=== PATIENT | female | born 1950 | race Caucasian/White ===

== ENCOUNTER → 2022-01-06 11:06 | Outpatient (CLI) | payer MEDICARE, SELFPAY ==
--- NOTE | ~2022-01-06 | MM_ITS ---
EXAMINATION: MM screening [facility] BI w curtis HISTORY: Screening mammogram TECHNIQUE: Craniocaudal and mediolateral oblique 3-D tomosynthesis images were obtained and synthetic 2-D images were generated. CAD analysis was submitted and interpreted. COMPARISON: 08/29/2018, 05/27/2015, 10/05/2011 BREAST PARENCHYMAL COMPOSITION: There are scattered areas of fibroglandular density. FINDINGS: There is no evidence of suspicious mass, calcification, or architectural distortion to sugg est malignancy in either breast. There has been no suspicious interval change. IMPRESSION: 1. No mammographic evidence of malignancy. 2. Recommend routine screening mammography in one year. BI-RADS Category 1: Negative Reviewed, dictated and finalized at location A. RAL INTERN
--- NOTE | ~2022-01-06 | DEXA_ITS ---
Bone Density Report Name: ATUL CLEMENT Age: 71 Sex: Female Ethnicity: White Date of : 1950 Indication: osteopenia; height loss; hysterectomy; postmenopausal Referring Provider: BRUNA SAUER Study: Bone densitometry was performed. Exam Date: January 06, 2022 Accession number: [id number] Bone Density: Region BMD T-score Z-score Classification Femoral Neck (Left) 0.537 -2.8 -1.0 Osteoporosis Total Hip (Left) 0.689 -2.1 -0.6 Osteopenia Femoral Neck (Right) 0.558 -2.6 -0.8 Osteoporosis Total Hip (Right) 0.689 -2.1 -0.6 Osteopenia Total Hip Mean 0.689 -2.1 -0.6 Osteopenia World Health Organization criteria for BMD impression classify patients as: Normal (T-score at or above -1.0), Osteopenia (T-score between -1.0 and -2.5), or Osteoporosis (T-score at or below -2.5). 10-year Fracture Risk: FRAX not reported because: Some T-score for Spine Total or Hip Total or Femoral Neck at or below -2.5 Previous Exams: Region Exam Age BMD T-score BMD Change BMD Change Date g/cm2 vs Baseline vs Previous Total Hip(Left) 01/06/2022 71 0.689 -2.1 -0.039* -0.039* 10/05/2011 61 0.728 -1.8 Total Hip(Right) 01/06/2022 71 0.689 -2.1 -0.030* -0.030* 10/05/2011 61 0.719 -1.8 *Denotes significance at 95% confidence level, LSC for Total Hip = 0.027 g/cm2 Clinical Information Provided by Patient: Has the following medical conditions: Hysterectomy Patient maximum height was 69.0 Menopause Age: 49 Drinks caffeinated beverages Onset of menses at age 16 Number of children 3 Impression: The patient has osteoporosis, based on the Left Femoral Neck T-score. The BMD for the Total Hip(Left) decreased, changing by -0.039 since the last DXA exam. The BMD for the Total Hip(Right) decreased, changing by -0.030 since the last DXA exam. Discussion: INCREASED RISK OF FRACTURE. BONE DENSITY IS UNDESIRABLY LOW AT ONE OR MORE SKELETAL SITES, CONSISTENT WITH POSTMENOPAUSAL OSTEOPOROSIS. This patient's lowest T-score meets the World Health Organization's (WHO) criteria for osteoporosis at one or more sites (T-score -2.5 or below). In untreated patients, the risk of osteoporotic fracture increases approximately two-fold for each 1.0 SD decrease in T-score. Low bone density is not the only risk factor for fracture; also consider factors such as patient's age, frailty or poor health, risk of falling, risk of injury, previous osteoporotic fracture, family history of osteoporosis, cigarette smoking, low christiane
== END ==
PROVIDERS: PCP Family Medicine Adolescent Medicine; Visit Provider Family Medicine Adolescent Medicine
DX: Z12.31 Encounter for screening mammogram for malignant neoplasm of breast (principal); Z78.0 Asymptomatic menopausal state; M81.0 Age-related osteoporosis without current pathological fracture; M85.852 Other specified disorders of bone density and structure, left thigh; M85.851 Other specified disorders of bone density and structure, right thigh
CPT/HCPCS: 77063; 77067; 77080

== ENCOUNTER → 2024-01-11 08:48 | Outpatient (CLI) | payer MEDICARE, SELFPAY ==
--- NOTE | ~2024-01-11 | DEXA_ITS ---
Bone Density Report Name: ATUL CLEMENT Age: 73 Sex: Female Ethnicity: White Date of : 1950 Indication: osteopenia; monitoring treatment; height loss; hysterectomy; Referring Provider: BRUNA SAUER Study: Bone densitometry was performed. Exam Date: January 11, 2024 Accession number: [id number] Bone Density: Region BMD T-score Z-score Classification Femoral Neck (Left) 0.595 -2.3 -0.4 Osteopenia Total Hip (Left) 0.713 -1.9 -0.3 Osteopenia Femoral Neck (Right) 0.558 -2.6 -0.7 Osteoporosis Total Hip (Right) 0.674 -2.2 -0.6 Osteopenia Total Hip Mean 0.694 -2.1 -0.5 Osteopenia World Health Organization criteria for BMD impression classify patients as: Normal (T-score at or above -1.0), Osteopenia (T-score between -1.0 and -2.5), or Osteoporosis (T-score at or below -2.5). 10-year Fracture Risk: FRAX not reported because: Some T-score for Spine Total or Hip Total or Femoral Neck at or below -2.5 Treated for osteoporosis Previous Exams: Region Exam Age BMD T-score BMD Change BMD Change Date g/cm2 vs Baseline vs Previous Total Hip(Left) 01/11/2024 73 0.713 -1.9 -0.015 0.024 01/06/2022 71 0.689 -2.1 -0.039* -0.039* 10/05/2011 61 0.728 -1.8 Total Hip(Right) 01/11/2024 73 0.674 -2.2 -0.045* -0.015 01/06/2022 71 0.689 -2.1 -0.030* -0.030* 10/05/2011 61 0.719 -1.8 *Denotes significance at 95% confidence level, LSC for Total Hip = 0.027 g/cm2 Clinical Information Provided by Patient: Is being treated for osteoporosis Has used the following medications: Fosamax (i.e. alendronate) Has the following medical conditions: Hysterectomy Patient maximum height was 69.0 Menopause Age: 49 No regular weight bearing exercise Does not regularly consume dairy products Drinks caffeinated beverages Onset of menses at age 16 Number of children 3 Impression: The patient has osteoporosis, based on the Right Femoral Neck T-score. No significant bone loss was observed. Discussion: PATIENT UNDER TREATMENT WITH NO SIGNIFICANT BMD LOSS SINCE LAST EXAM. In an untreated patient, BMD typically declines with age. A lack of decline or gain is usually a sign that treatment is efficacious and fracture risk is reduced. It is important to ask patients whether they are taking their medications and to encourage continued and appropriate compliance with their osteoporosis therapies to reduce fracture risk. It is also important to review their risk
== END ==
PROVIDERS: PCP Family Medicine Adolescent Medicine; Visit Provider Family Medicine Adolescent Medicine
DX: Z78.0 Asymptomatic menopausal state (principal); M85.88 Other specified disorders of bone density and structure, other site; M85.852 Other specified disorders of bone density and structure, left thigh; M85.851 Other specified disorders of bone density and structure, right thigh; M81.0 Age-related osteoporosis without current pathological fracture
CPT/HCPCS: 77080

== ENCOUNTER 2024-03-06 15:25 | Outpatient (CLI) | payer MEDICARE, SELFPAY ==
--- NOTE | ~2024-03-06 | MM_ITS ---
EXAMINATION: MM screening [facility] w [facility] HISTORY: Screening mammogram TECHNIQUE: Craniocaudal and mediolateral oblique 3-D tomosynthesis images were obtained and synthetic 2-D images were generated. CAD analysis was submitted and interpreted. COMPARISON: 01/06/2022, 08/29/2018 bilateral screening mammogram examinations BREAST PARENCHYMAL COMPOSITION: There are scattered areas of fibroglandular density. FINDINGS: There is no evidence of suspicious mass, calcification, or architectural distortion to sugg est malignancy in either breast. There has been no suspicious interval change. IMPRESSION: 1. No mammographic evidence of malignancy. 2. Recommend routine screening mammography in one year. BI-RADS Category 1: Negative Reviewed, dictated and finalized at location A.
== END 2024-03-06 15:26 ==
LOC: MICIMG 15:25
PROVIDERS: PCP Family Medicine Adolescent Medicine; Visit Provider Family Medicine Adolescent Medicine
DX: Z12.31 Encounter for screening mammogram for malignant neoplasm of breast (principal)
CPT/HCPCS: 77063; 77067

== ENCOUNTER 2024-03-10 15:42 | Emergency (ER) | payer MEDICARE, SELFPAY ==
--- NOTE | ~2024-03-10 | XR_ITS ---
EXAMINATION: XR chest 2V DATE: 03/10/2024 16:39 INDICATION: Dizziness and weakness. TECHNIQUE: Frontal and lateral views of the chest were obtained. COMPARISON: Chest 2 views 09/21/2006 FINDINGS: There is mild scarring at the lung apices. No pleural effusion or pneumothorax. The heart s ize is normal. There are changes of posterior fusion procedure in the lumbar spine. IMPRESSION: 1. Stable mild scarring at the lung apices. Reviewed, dictated and finalized at location E.
--- NOTE | ~2024-03-10 | US_ITS ---
EXAMINATION: US venous doppler [facility] DATE: 03/10/2024 19:02 INDICATION: Left lower limb swelling. TECHNIQUE: Grayscale ultrasound images without and with compression and Doppler ultrasound images of the left lower extremity veins were obtained. COMPARISON: None. FINDINGS: The visualized portions of left common femoral vein, profunda (deep) femoral vein, femoral vein, popl iteal vein, peroneal veins, posterior tibial veins, and greater saphenous vein outflow are patent. IMPRESSION: 1. No deep venous thrombosis. Reviewed, dictated and finalized at location E.
[2024-03-10 15:48] VITALS: BP 142/80; PULSE 89; RESP 18; TEMP 36.4; O2SAT 100
--- NOTE | 2024-03-10 15:52 | ECG_ITS ---
SEE SCANNED COPY FOR CONFIRMED REPORT MTDD
[2024-03-10 16:29] LABS: Basophils Absolute Auto 0.1 K/mm3 (0.0-0.1); Basophils Percent Auto 0.7 % (0.2-1.2); Eosinophils Absolute Auto 0.1 K/mm3 (0-0.3); Eosinophils Percent Auto 1.1 % (0-4.4); Hematocrit 24.9 % (37.0-47.0); Hemoglobin 7.7 g/dL (12.0-15.0); Immature Granulocyte Absolute 0.04 K/mm3 (0.00-0.031); Immature Granulocyte Percent A 0.5 % (0-0.5); Lymphocytes Percent Auto 28.1 % (18.3-44.2); Mean Corpuscular HGB Conc 30.9 g/dl (32-36); Mean Corpuscular Hemoglobin 24.7 pg (26-34); Mean Corpuscular Volume 79.8 fl (80-100); Mean Platelet Volume 9.4 fl (7.4-10.4); Monocytes Absolute Auto 0.7 K/mm3 (0.1-0.6); Monocytes Percent Auto 9.5 % (2.6-8.5); Neutrophils Absolute Auto 4.5 K/mm3 (1.3-6.7); Neutrophils Percent Auto 60.1 % (45.5-73.1); Platelet Count Result 255 k/mm3 (150-375); Red Blood Count 3.12 M/mm3 (4.2-5.4); Red Cell Distribution Width 19.9 % (11.5-14.5); White Blood Count 7.5 K/mm3 (4.5-10.0)
[2024-03-10 16:40] LABS: Alanine Aminotransferase 14 U/L (6-35); Albumin Level 4.2 g/dL (3.5-5.1); Alkaline Phosphatase 47 U/L (38-126); Anion Gap 7 mmol/L (4-12); Aspartate Amino Transferase 23 U/L (14-36); Bilirubin,Total 0.5 mg/dL (0.2-1.3); Blood Urea Nitrogen 36 mg/dL (7-17); Calcium 8.8 mg/dL (8.4-10.2); Carbon Dioxide 22 mmol/L (22-30); Chloride 107 mmol/L (98-107); Estimated CRCL calculation 57 ml/min; Estimated Glomerular Filt Rate > 60; Glucose 125 mg/dL (65-110); Potassium 4.1 mmol/L (3.4-5.0); Sodium 136 mmol/L (137-145)
[2024-03-10 18:00] VITALS: BP 120/79; PULSE 80; RESP 16; TEMP 36.4; O2SAT 100
--- NOTE | 2024-03-10 18:01 | ED.DIZZY ---
HPI - Dizziness General Chief Complaint: Dizziness Stated Complaint: shortness of breath, dizziness, weakness Time Seen by Provider: 03/10/24 17:40 Source: patient Mode of arrival: ambulatory Limitations: no limitations History of Present Illness HPI Narrative: This is a 73-year-old female who presents to the ED with chief complaint of generalized weakness and dyspnea onset yesterday afternoon. Patient reports that whenever she is up and about, she starts to feel quite winded and at very generally weak. She reports this causes her to feel dizzy and lightheaded as well. Denies any full syncopal episode. Denies any associated chest pain or back pain. Denies abdominal pain, nausea, vomiting, diarrhea. Denies any GI bleeding or other bleeding symptoms. Denies fevers, chills, cough. Related Data Allergies Allergy/AdvReac Type Severity Reaction Status Date / Time Sulfa (Sulfonamide AdvReac Nausea Verified 03/10/24 15:51 Antibiotics) Review of Systems Review of Systems: All systems as dictated in HPI PMFSH Past Medical History Medical History (Updated 03/11/24 @ 00:00 by Mickey Arshad) Abnormal colonoscopy 07/21 polyp Surgical History Surgical History (Updated 12/09/21 @ 14:41 by Renard Salamanca MD) History of hysterectomy History of lumbar fusion 08/27 History of lumbar surgery 2017 History of subtotal thyroidectomy Family History Family History (Updated 12/10/21 @ 11:39 by Chris Munoz MA) Father Lung cancer Heart disease Mother Cerebrovascular accident Social History Social History (Updated 12/10/21 @ 11:40 by Chris Munoz MA) Smoking status: Never smoker Second hand tobacco smoke exposure: No Alcohol intake: current Drinks per week: 2 Substance use: never Substance use type: does not use Living arrangements: with family Occupation/Education: retired Gender identity (if verbalized by the patient): Female Sexual Orientation (if Verbalized by the Patient): Straight or Heterosexual Spiritual care concerns: No Agree to blood products: Yes Exam Narrative: GENERAL: Well-appearing, well-nourished, and in no acute distress. HEAD: Normocephalic, atraumatic. EYES: PERRLA and EOMI. ENT: Nares clear, no rhinorrhea or epistaxis. Mucous membranes moist. Oropharynx without tonsillar hypertrophy exudate or other lesions. NECK: Supple. No adenopathy or masses. CHEST: No respiratory distress. Clear to auscultation. No wheezes rales or rhonchi HEART: Regular rate and rhythm. No murmur heard. Normal peripheral pulses. ABDOMEN: Soft, nontender, nondistended, normal active bowel sounds. MSK: Normal range of motion. No edema. SKIN: Warm, dry, no rash. NEURO: Alert and oriented x3. No focal deficits. PSYCH: Normal mood and affect. Course Consultations Consultation #1: Spoke with PCP, Dr. Barrera. Discussed the results of the workup today regarding the significantly low hemoglobin 7.7. We discussed that this looks like a microcytic anemia, likely iron deficiency. He feels comfortable following up outpatient on Wednesday and is requesting iron labs, B12, folate to be added on here. Date: 03/10/24 Time: 18:00 Vital Signs Vital signs: Vital Signs Temperature 97.5 F L 03/10/24 15:48 Pulse Rate 89 03/10/24 15:48 Respiratory Rate 18 03/10/24 15:48 Blood Pressure 142/80 H 03/10/24 15:48 Pulse Oximetry 100 03/10/24 15:48 Oxygen Delivery Room Air 03/10/24 15:48 Temperature 97.6 F 03/10/24 18:00 Pulse Rate 83 03/10/24 19:46 Respiratory Rate 16 03/10/24 19:46 Blood Pressure 120/79 03/10/24 19:46 Pulse Oximetry 100 03/10/24 19:46 Oxygen Delivery Room Air 03/10/24 18:00 MDM - Dizziness MDM Narrative Medical decision making narrative: This is a 73-year-old female who presents to the ED with chief complaint of generalized weakness and dyspnea on exertion over the past couple of days. Vitals are no
[2024-03-10 18:45] LABS: D Dimer 0.49 ug/mL (<0.48)
[2024-03-10 18:50] LABS: NT Pro B Type Natriuretic Pept < 20 pg/mL (19.9-100)
[2024-03-10 19:12] LABS: Appearance Urine Clear (Clear); Bacteria Urine None Seen /hpf; Bilirubin Urine Negative (Negative); Blood Urine Negative (Negative); Color Urine Yellow (Yellow); Glucose Urine UA Negative (Negative); Ketones Urine Trace mg/dL (Negative); Leukocyte Esterase Ur 1+ LEU/UL (Negative); Need Manual Microscopic Reviewed; Nitrate Urine Negative (Negative); Non Pathogenic Casts 0-2; Protein Urine Negative (Negative); RBC Urine 0-2 /hpf (0-2); Specific Grav Ur 1.018 (1.001-1.035); Squamous Epithelial Cell Urine None Seen /hpf (Few); Urobilinogen Urine 0.2 mg/dL (<2.0); WBC Urine 0-5 /hpf (0-3); pH Urine 5.5 (5.0-9.0)
[2024-03-10 19:15] LABS: Add Urine Microscopic? NO
[2024-03-10 19:46] VITALS: BP 120/79; PULSE 83; RESP 16; O2SAT 100
[2024-03-10 19:59] LABS: Iron 91 ug/dL (37-170)
[2024-03-10 20:08] LABS: Percent Iron Saturation 24 % (20-50)
[2024-03-10 20:37] LABS: Ferritin 8.93 ng/mL (11.1-264)
[2024-03-13 15:44] LABS: Red Blood Cell Folate 761 ng/mL RBC (>280)
== END 2024-03-10 20:25 | disposition home or self-care (01) ==
PROVIDERS: Emergency Medicine; Emergency Provider Physician Assistant; PCP Family Medicine Adolescent Medicine
DX: D50.9 Iron deficiency anemia, unspecified (principal); R79.1 Abnormal coagulation profile; R06.02 Shortness of breath; E89.0 Postprocedural hypothyroidism; Z90.710 Acquired absence of both cervix and uterus; Z98.1 Arthrodesis status; I45.10 Unspecified right bundle-branch block; R94.31 Abnormal electrocardiogram [ECG] [EKG]
CPT/HCPCS: 36415; 71046; 80053; 81003; 82607; 82728; 82747; 83540; 83550; 83880; 85025; 85380; 93005; 93971; 99284

== ENCOUNTER 2024-03-21 08:45 | Day surgery (SDC) | payer MEDICARE, SELFPAY ==
[2024-03-15 14:12] VITALS: BMI 21.2
[2024-03-16 11:21] VITALS: BMI 21.2
--- NOTE | 2024-03-17 08:45 | PM.HPGS ---
History of Present Illness History of Present Illness Consent: Risks, benefits, and alternatives have been discussed and questions answered. Patient agrees to proceed with procedure. Chief complaint: Anemia Narrative: Cori Khan is a 73 year old female referred for EGD andcolonoscopy due to anemia. Recent hemoglobin was 7.4. Her last colonoscopy was about 10 years ago. Review of Systems Review of Systems: All systems reviewed & are unremarkable except as noted in HPI and below PMFSH Past Medical History Medical History Abnormal colonoscopy 07/21 polyp Surgical History Surgical History History of hysterectomy History of lumbar fusion 08/27 History of lumbar surgery 2017 History of subtotal thyroidectomy Family History Family History Father Lung cancer Heart disease Mother Cerebrovascular accident Social History Social History Smoking status: Never smoker Second hand tobacco smoke exposure: No Alcohol intake: current Drinks per week: 3 Substance use: never Substance use type: does not use Living arrangements: with family Occupation/Education: retired Gender identity (if verbalized by the patient): Female Sexual Orientation (if Verbalized by the Patient): Straight or Heterosexual Spiritual care concerns: No Agree to blood products: Yes Meds Home Medications and Allergies Home Medications Medication Instructions Recorded Confirmed Type atorvastatin 20 mg tablet 20 mg PO DAILY #90 tabs 08/26/23 03/21/24 Rx alendronate 70 mg tablet 70 mg PO WEEKLY #13 tabs 11/16/23 03/21/24 Rx levothyroxine 50 mcg tablet 50 mcg PO DAILY #90 tabs 11/25/23 03/21/24 Rx (Euthyrox) tamsulosin 0.4 mg capsule 0.4 mg PO BID #180 caps 11/25/23 03/21/24 Rx Allergies Allergy/AdvReac Type Severity Reaction Status Date / Time Sulfa (Sulfonamide AdvReac Nausea Verified 03/21/24 09:48 Antibiotics) Exam Const: General: alert Orientation/consciousness: patient oriented x3 Resp: Auscultation: clear to auscultation bilaterally Cardio: Rhythm: regular rhythm GI: GI Palp: Yes Soft to palpation and No Tenderness to palpation present (GI) Neuro: General: patient oriented x3 Assessment and Plan Assessment and plan (1) Anemia: Code(s): D64.9 - Anemia, unspecified Status: Acute Assessment and Plan: EGD with possible biopsy or dilatation or cautery. Colonoscopy with possible biopsy or polypectomy or cautery or injection of substances.
[2024-03-21 09:54] VITALS: BP 107/80; PULSE 89; RESP 16; TEMP 36.4; O2SAT 100; BMI 20.5
[2024-03-21] MEDS: LACTATED RINGERS 1,000 ML 150 ML IV CONT (10:07)
--- NOTE | 2024-03-21 10:32 | WPDANESEPPF ---
Anes - Initial Pre Proc Eval Procedure: Operation Date: 03/21/24 10:30 Proposed Procedures p Esophagogastroduodenoscopy - Jose Hendrickson MD s Diagnostic Colonoscopy - Jose Hendrickson MD Date/Time: 03/21/24 10:32 Surgeon: Jose Hendrickson MD Pre Op Diagnosis: Anemia Patient Data Age: 73 Gender: F Height: 1.65 m Weight: 56 kg Last Vital Signs Temp 36.4 C 03/21/24 09:54 Pulse 89 03/21/24 09:54 Resp 16 03/21/24 09:54 BP 107/80 03/21/24 09:54 Pulse Ox 100 03/21/24 09:54 O2 Del Method Room Air 03/21/24 09:54 Allergies Allergy/AdvReac Type Severity Reaction Status Date / Time Sulfa (Sulfonamide AdvReac Nausea Verified 03/21/24 09:48 Antibiotics) Home Medications Medication Instructions Recorded Confirmed Type atorvastatin 20 mg tablet 20 mg PO DAILY #90 tabs 08/26/23 03/21/24 Rx alendronate 70 mg tablet 70 mg PO WEEKLY #13 tabs 11/16/23 03/21/24 Rx levothyroxine 50 mcg tablet 50 mcg PO DAILY #90 tabs 11/25/23 03/21/24 Rx (Euthyrox) tamsulosin 0.4 mg capsule 0.4 mg PO BID #180 caps 11/25/23 03/21/24 Rx Patient hx anesthesia problems: none Family hx anesthesia problems: none Results Review: All pre-operative results and documents have been reviewed as part of the pre-operative evaluation. [facility] Past Medical History Medical History Abnormal colonoscopy 07/21 polyp Surgical History Surgical History History of hysterectomy History of lumbar fusion 08/27 History of lumbar surgery 2017 History of subtotal thyroidectomy Family History Family History Father Lung cancer Heart disease Mother Cerebrovascular accident Social History Social History Smoking status: Never smoker Second hand tobacco smoke exposure: No Alcohol intake: current Drinks per week: 3 Substance use: never Substance use type: does not use Living arrangements: with family Occupation/Education: retired Gender identity (if verbalized by the patient): Female Sexual Orientation (if Verbalized by the Patient): Straight or Heterosexual Spiritual care concerns: No Agree to blood products: Yes Anes - Eval Final PreProcedure Day of Procedure 03/21/24 10:32 Patient weight: normal Heart: regular rate and rhythm Lungs: clear to auscultation Airway: Mallampati scale class II Neurological: alert and oriented Last oral intake: >/= 8 hours ASA classification: II Emergent: no Anesthetic plan: proceed Anesthesia type and monitoring: general GIVS and standard monitoring Results Review: All pre-operative results and documents have been reviewed as part of the pre-operative evaluation. Informed Consent: The patient's anesthetic plan and its attendant risks and benefits were discussed with the patient/family/POA. Questions were solicited and answers provided to the satisfaction of the patient/family/POA.
[2024-03-21 11:08] VITALS: BP 84/69; PULSE 68; RESP 14; O2SAT 100
[2024-03-21 11:18] VITALS: BP 92/62; PULSE 60; RESP 15; O2SAT 100
[2024-03-21 11:28] VITALS: BP 102/77; PULSE 56; RESP 16; O2SAT 100
--- NOTE | 2024-03-21 12:02 | WPDANESPN ---
Anes - Prog Note Post-Op Date/Time: 03/21/24 12:02 Cardiovascular status: normal Respiratory status: normal Airway patency: baseline Mental status: baseline Post-Op hydration status: normal Vital Signs: Last Vital Signs Temp 36.4 C 03/21/24 09:54 Pulse 56 L 03/21/24 11:28 Resp 16 03/21/24 11:28 BP 102/77 03/21/24 11:28 Pulse Ox 100 03/21/24 11:28 O2 Del Method Room Air 03/21/24 11:28 Pain Score (VAS): 0 I/O: Intake & Output 03/20/24 03/21/24 03/21/24 23:59 07:59 15:59 Intake Total 400 Balance 400 Patient Feedback: Patient satisfied with anesthetic care.
== END 2024-03-21 11:50 | disposition home or self-care (01) ==
PROVIDERS: PCP Family Medicine Adolescent Medicine; Visit Provider Internal Medicine Gastroenterology
PROC: 0DJ08ZZ Inspection of Upper Intestinal Tract, Via Natural or Artificial Opening Endoscopic (ICD-10-PCS; CPT 43235; principal; 2024-03-21 10:30)
PROC: 0DJD8ZZ Inspection of Lower Intestinal Tract, Via Natural or Artificial Opening Endoscopic (ICD-10-PCS; CPT 45378; 2024-03-21 10:30)
DX: D50.9 Iron deficiency anemia, unspecified (principal); K57.30 Diverticulosis of large intestine without perforation or abscess without bleeding; K25.9 Gastric ulcer, unspecified as acute or chronic, without hemorrhage or perforation
CPT/HCPCS: 45378; 43239

== ENCOUNTER 2024-03-21 09:18 | Outpatient (NON) | payer MEDICARE, SELFPAY | END 2024-03-21 09:19 | disposition home or self-care (01) | PROVIDERS: PCP Family Medicine Adolescent Medicine; Visit Provider Internal Medicine Gastroenterology | DX: D64.9 Anemia, unspecified (principal) | CPT/HCPCS: 88305 ==

== ENCOUNTER 2024-06-05 06:14 | Day surgery (SDC) | payer MEDICARE, SELFPAY ==
[2024-03-23 13:53] VITALS: BMI 21.2
[2024-05-25 10:19] VITALS: BMI 21.2
--- NOTE | 2024-06-03 13:03 | PM.HPGS ---
History of Present Illness History of Present Illness Consent: Risks, benefits, and alternatives have been discussed and questions answered. Patient agrees to proceed with procedure. Chief complaint: Unspecified gastric ulcer Narrative: Cori Khan is a 74 year old female with a history of ulcers and found to be anemic in March. Review of Systems Review of Systems: All systems reviewed & are unremarkable except as noted in HPI and below PMFSH Past Medical History Medical History Abnormal colonoscopy 07/21 polyp Surgical History Surgical History History of hysterectomy History of lumbar fusion 08/27 History of lumbar surgery 2017 History of subtotal thyroidectomy Hx of hernia repair Family History Family History Father Lung cancer Heart disease Mother Cerebrovascular accident Social History Social History Smoking status: Never smoker Second hand tobacco smoke exposure: No Alcohol intake: current Drinks per week: 4 Substance use: never Substance use type: does not use Living arrangements: with family Occupation/Education: retired Gender identity (if verbalized by the patient): Female Sexual Orientation (if Verbalized by the Patient): Straight or Heterosexual Spiritual care concerns: No Agree to blood products: Yes Meds Home Medications and Allergies Home Medications Medication Instructions Recorded Confirmed Type atorvastatin 20 mg tablet 20 mg PO DAILY #90 tabs 08/26/23 06/05/24 Rx alendronate 70 mg tablet 70 mg PO WEEKLY #13 tabs 11/16/23 06/05/24 Rx pantoprazole 40 mg tablet,delayed 40 mg PO BID #60 tabs 03/21/24 06/05/24 Rx release levothyroxine 50 mcg tablet 50 mcg PO DAILY #90 tabs 05/19/24 06/05/24 Rx (Euthyrox) tamsulosin 0.4 mg capsule 0.4 mg PO BID #180 caps 05/19/24 06/05/24 Rx ferrous sulfate 325 mg (65 mg 325 mg PO BID 05/25/24 06/05/24 History iron) tablet (Iron (ferrous sulfate)) Allergies Allergy/AdvReac Type Severity Reaction Status Date / Time Sulfa (Sulfonamide AdvReac Nausea Verified 06/05/24 06:43 Antibiotics) Exam Const: General: alert Orientation/consciousness: patient oriented x3 Resp: Auscultation: clear to auscultation bilaterally Cardio: Rhythm: regular rhythm GI: GI Palp: Yes Soft to palpation and No Tenderness to palpation present (GI) Neuro: General: patient oriented x3 Assessment and Plan Assessment and plan (1) Gastric ulcer: Code(s): K25.9 - Gastric ulcer, unspecified as acute or chronic, without hemorrhage or perforation Status: Acute Assessment and Plan: EGD with possible biopsy or dilatation or cautery.
[2024-06-05 06:45] VITALS: BP 115/75; PULSE 56; RESP 15; TEMP 36.7; O2SAT 97
[2024-06-05] MEDS: LACTATED RINGERS 1,000 ML 150 ML IV CONT (07:15)
--- NOTE | 2024-06-05 07:39 | WPDANESEPPF ---
Anes - Initial Pre Proc Eval Procedure: Operation Date: 06/05/24 08:00 Proposed Procedures p Esophagogastroduodenoscopy - Jose Hendrickson MD Date/Time: 06/05/24 07:39 Surgeon: Jose Hendrickson MD Pre Op Diagnosis: Unspecified gastric ulcer Patient Data Age: 74 Gender: F Height: 1.65 m Weight: 58.8 kg Last Vital Signs Temp 36.7 C 06/05/24 06:45 Pulse 56 L 06/05/24 06:45 Resp 15 06/05/24 06:45 BP 115/75 06/05/24 06:45 Pulse Ox 97 06/05/24 06:45 O2 Del Method Room Air 06/05/24 06:45 Allergies Allergy/AdvReac Type Severity Reaction Status Date / Time Sulfa (Sulfonamide AdvReac Nausea Verified 06/05/24 06:43 Antibiotics) Home Medications Medication Instructions Recorded Confirmed Type atorvastatin 20 mg tablet 20 mg PO DAILY #90 tabs 08/26/23 06/05/24 Rx alendronate 70 mg tablet 70 mg PO WEEKLY #13 tabs 11/16/23 06/05/24 Rx pantoprazole 40 mg tablet,delayed 40 mg PO BID #60 tabs 03/21/24 06/05/24 Rx release levothyroxine 50 mcg tablet 50 mcg PO DAILY #90 tabs 05/19/24 06/05/24 Rx (Euthyrox) tamsulosin 0.4 mg capsule 0.4 mg PO BID #180 caps 05/19/24 06/05/24 Rx ferrous sulfate 325 mg (65 mg 325 mg PO BID 05/25/24 06/05/24 History iron) tablet (Iron (ferrous sulfate)) Patient hx anesthesia problems: none Family hx anesthesia problems: none Results Review: All pre-operative results and documents have been reviewed as part of the pre-operative evaluation. [facility] Past Medical History Medical History Abnormal colonoscopy 07/21 polyp Surgical History Surgical History History of hysterectomy History of lumbar fusion 08/27 History of lumbar surgery 2017 History of subtotal thyroidectomy Hx of hernia repair Family History Family History Father Lung cancer Heart disease Mother Cerebrovascular accident Social History Social History Smoking status: Never smoker Second hand tobacco smoke exposure: No Alcohol intake: current Drinks per week: 4 Substance use: never Substance use type: does not use Living arrangements: with family Occupation/Education: retired Gender identity (if verbalized by the patient): Female Sexual Orientation (if Verbalized by the Patient): Straight or Heterosexual Spiritual care concerns: No Agree to blood products: Yes Anes - Eval Final PreProcedure Day of Procedure 06/05/24 07:39 Patient weight: normal Heart: regular rate and rhythm Lungs: clear to auscultation Airway: Mallampati scale class 1 Neurological: alert and oriented Last oral intake: >/= 8 hours ASA classification: II Emergent: no Anesthetic plan: proceed Anesthesia type and monitoring: general GIVS and standard monitoring Results Review: All pre-operative results and documents have been reviewed as part of the pre-operative evaluation. Informed Consent: The patient's anesthetic plan and its attendant risks and benefits were discussed with the patient/family/POA. Questions were solicited and answers provided to the satisfaction of the patient/family/POA.
[2024-06-05 07:52] VITALS: BP 95/60; PULSE 55; RESP 18; O2SAT 100
[2024-06-05 08:02] VITALS: BP 105/68; PULSE 52; RESP 16; O2SAT 99
[2024-06-05 08:12] VITALS: BP 107/67; PULSE 49; RESP 18; O2SAT 99
--- NOTE | 2024-06-05 08:33 | WPDANESPN ---
Anes - Prog Note Post-Op Date/Time: 06/05/24 08:33 Cardiovascular status: normal Respiratory status: normal Airway patency: baseline Mental status: baseline Post-Op hydration status: normal Vital Signs: Last Vital Signs Temp 36.7 C 06/05/24 06:45 Pulse 49 L 06/05/24 08:12 Resp 18 06/05/24 08:12 BP 107/67 06/05/24 08:12 Pulse Ox 99 06/05/24 08:12 O2 Del Method Room Air 06/05/24 08:12 Pain Score (VAS): 0/10 I/O: Intake & Output 06/04/24 06/05/24 06/05/24 23:59 07:59 15:59 Intake Total 200 100 Balance 200 100 Patient Feedback: Patient satisfied with anesthetic care.
== END 2024-06-05 08:25 | disposition home or self-care (01) ==
PROVIDERS: PCP Family Medicine Adolescent Medicine; Visit Provider Internal Medicine Gastroenterology
PROC: 0DJ08ZZ Inspection of Upper Intestinal Tract, Via Natural or Artificial Opening Endoscopic (ICD-10-PCS; CPT 43235; principal; 2024-06-05 08:00)
DX: K29.70 Gastritis, unspecified, without bleeding (principal)
CPT/HCPCS: 43235

== ENCOUNTER 2024-06-07 08:51 | Outpatient (CLI) | payer MEDICARE, SELFPAY ==
--- NOTE | ~2024-06-07 | CT_ITS ---
EXAMINATION: CT abdomen pelvis wo con DATE: 06/07/2024 09:03 INDICATION: Right inguinal hernia without obstruction. TECHNIQUE: Computed tomography (CT) of the abdomen and pelvis was performed without intravenous contr ast. Automated exposure control and iterative reconstruction technique were employed. The dose-length product was 310.42 mGy-cm. COMPARISON: CT abdomen 05/07/2008 FINDINGS: The visualized portions of the lung bases demonstrate mild atelectasis. A calcified right l adin nodule is consistent with old granulomatous disease. No pleural effusion. The heart size is abdiel l. There is a trace pericardial effusion. The liver, gallbladder, spleen, pancreas, adrenal glands, a nd kidneys are normal. There is no urolithiasis. There are no dilated loops of bowel. The appendix is normal. There is a right inguinal hernia containing fat. There are no pathologically enlarged lymph nodes. There is no free intraperitoneal fluid. There are changes of posterior fusion procedure from L 1 to L3. There are changes of anterior fusion procedure at L5-S1. There is severe thoracolumbar spond ylosis. IMPRESSION: 1. Right inguinal hernia containing fat. Reviewed, dictated and finalized at location A.
== END 2024-06-07 08:52 ==
LOC: MICIMG 08:52
PROVIDERS: PCP Family Medicine Adolescent Medicine; Visit Provider Surgery
DX: K40.91 Unilateral inguinal hernia, without obstruction or gangrene, recurrent (principal)
CPT/HCPCS: 74176

== ENCOUNTER 2024-08-10 10:20 | Outpatient (CLI) | payer MEDICARE, SELFPAY ==
[2024-08-10 10:52] LABS: Hematocrit 37.6 % (37.0-47.0); Hemoglobin 12.3 g/dL (12.0-15.0)
== END 2024-08-10 10:21 | disposition home or self-care (01) ==
PROVIDERS: Anesthesiology; PCP Family Medicine Adolescent Medicine; Visit Provider Surgery
DX: K40.91 Unilateral inguinal hernia, without obstruction or gangrene, recurrent (principal); D64.9 Anemia, unspecified
CPT/HCPCS: 36415; 85014; 85018; 86850; 86900; 86901

== ENCOUNTER 2024-08-11 04:33 | Day surgery (SDC) | payer MEDICARE, SELFPAY ==
--- NOTE | 2024-08-09 15:19 | PC.NURSE ---
Report to the Outpatient Waiting Room, entrance under the green pavilion located off [facility], at time _8:30 AM on date _08/11/24 . Planned Procedure Time: ___10;30 AM .? Time changes happen often and if your time is changed the preop area will call you the afternoon before. - You and your visitor will be asked to self-screen and do not enter if you have any COVID symptoms. Please call surgeon if you need to reschedule. - A mask is optional within the hospital at this time. Patients may have clear liquids (water, carbonated beverages, clear teas, apple juice) until 3 hours prior to surgery(7:30 AM) with a maximum of 20 ounces. - No food from midnight until time of surgery and no smoking - Infants may have breast milk until 4 hours before surgery, formula 6 hours prior to surgery. - Children will be allowed to drink immediately following surgery.? If applicable, please bring a bottle or sippy cup to assist with drinking. Juice, water, soda, and popsicles are readily available.? For infants on formula, please bring formula the day of surgery.? Pacifiers are allowed. Take only the following medications with a SIP of water on the morning of surgery: _LEVOTHYROXINE, DO NOT STOP ANY OF YOUR OTHER PRESCRIPTION MEDICATIONS PRIOR TO SURGERY EXCEPT THE FOLLOWING Medications to discontinue per physician NONE Please no make-up, nail beninese, hairspray, perfume, deodorant, or body powder the day of surgery.? No jewelry (including any body piercings) or valuables the day of surgery, leave them at home.? Please take a shower or bath the night before, or the morning of, surgery with an antibacterial soap.? Wear comfortable, loose fitting clothing.? Children are encouraged to wear pajamas. - Jewelry must be removed prior to entering the operating room.? Rings and piercings that are not removed may be cut off. - The hospital will not accept responsibility for valuables.? - Please leave all valuables, including medications, at home the day of surgery. If you are going home after surgery, a licensed racing car driver must drive you home.? - NO public transportation without another adult if you receive anesthesia. - We recommend that an adult stay with you for 24 hours following discharge. - We also recommend that you do not drive, make important decision, drink alcoholic beverages, or take any drugs that were not prescribed by your health care provider for at least 24 hours after your discharge time. For Pediatric surgeries, we recommend two adults accompany the child home. Follow any additional instructions given to you from your surgeon. Telephone instructions given to PATIENT and asked if any additional questions and then verbalized understanding. Patient advised to call surgeon office or pre surgery nurse liaison [phone] if any additional questions.
[2024-08-09 15:31] VITALS: BMI 21.9
--- NOTE | 2024-08-10 13:56 | WPDANESEPPF ---
Anes - Initial Pre Proc Eval Procedure: Operation Date: 08/11/24 07:30 Proposed Procedures p Robotic Assisted Laparoscopic Right Recurrent Inguinal Hernia Repair with Mesh, Possible Open - Ambrocio Jaeger MD Date/Time: 08/10/24 13:56 Surgeon: Ambrocio Jaeger MD Pre Op Diagnosis: recurrent right inguinal hernia Patient Data Age: 74 Gender: F Height: 1.65 m Weight: 59.9 kg Allergies Allergy/AdvReac Type Severity Reaction Status Date / Time Sulfa (Sulfonamide AdvReac Nausea Verified 08/09/24 15:06 Antibiotics) Home Medications Medication Instructions Recorded Confirmed Type atorvastatin 20 mg tablet 20 mg PO DAILY #90 tabs 08/26/23 08/09/24 Rx alendronate 70 mg tablet 70 mg PO WEEKLY #13 tabs 11/16/23 08/09/24 Rx pantoprazole 40 mg tablet,delayed 40 mg PO BID #60 tabs 03/21/24 08/09/24 Rx release levothyroxine 50 mcg tablet 50 mcg PO DAILY #90 tabs 05/19/24 08/09/24 Rx (Euthyrox) tamsulosin 0.4 mg capsule 0.4 mg PO BID #180 caps 05/19/24 08/09/24 Rx ferrous sulfate 325 mg (65 mg 325 mg PO DAILY 05/25/24 08/09/24 History iron) tablet (Iron (ferrous sulfate)) mirabegron 50 mg tablet,extended 50 mg PO DAILY 08/09/24 08/09/24 History release 24 hr (Myrbetriq) Patient hx anesthesia problems: none Family hx anesthesia problems: none Results Review: All pre-operative results and documents have been reviewed as part of the pre-operative evaluation. [facility] Past Medical History Medical History Abnormal colonoscopy 07/21 polyp Surgical History Surgical History History of hysterectomy History of lumbar fusion 08/27 History of lumbar surgery 2017 History of subtotal thyroidectomy Hx of hernia repair Family History Family History Father Lung cancer Heart disease Mother Cerebrovascular accident Social History Social History (Reviewed 06/20/24 @ 09:21 by DEREJE Denton Years smoked: 5 Smoking status: Former smoker Tobacco type: cigarettes Second hand tobacco smoke exposure: No Smoking end date: 11/08/79 Alcohol intake: current Drinks per week: 4 Substance use: never Substance use type: does not use Living arrangements: with family Occupation/Education: retired Gender identity (if verbalized by the patient): Female Sexual Orientation (if Verbalized by the Patient): Straight or Heterosexual Spiritual care concerns: No Agree to blood products: Yes Anes - Eval Final PreProcedure Day of Procedure 08/10/24 13:56 Patient weight: normal Heart: regular rate and rhythm Lungs: clear to auscultation Airway: Mallampati scale class II Neurological: alert and oriented Last oral intake: >/= 8 hours ASA classification: III Emergent: no Anesthetic plan: proceed Anesthesia type and monitoring: general ETT and standard monitoring Results Review: All pre-operative results and documents have been reviewed as part of the pre-operative evaluation. Informed Consent: The patient's anesthetic plan and its attendant risks and benefits were discussed with the patient/family/POA. Questions were solicited and answers provided to the satisfaction of the patient/family/POA.
[2024-08-11] VITALS (10 sets, daily range): BP systolic 129–145; BP diastolic 67–90; PULSE 62–96; RESP 12–20; TEMP 36.1; O2SAT 97–100; BMI 22.4
[2024-08-11] MEDS: ACETAMINOPHEN 500 MG TABLET 1000 MG PO (07:06)
[2024-08-11] MEDS: LACTATED RINGERS 1,000 ML 30 ML IV CONT ×2 (07:07→09:58)
[2024-08-11] MEDS: KETOROLAC 15 MG/ML VIAL (*BKC) IV PUSH (07:07)
--- NOTE | 2024-08-11 07:14 | WPDHPUPDATE1 ---
History and Physical Update Update Date/Time: 08/11/24 07:14 History and Physical has been reviewed, including an updated exam of the patient. There are NO changes in the patient's condition. Risks, benefits, and alternatives have been discussed and questions answered. Patient agrees to proceed with procedure.
--- NOTE | 2024-08-11 07:26 | PM.IMHP ---
H&P: HPI History of Present Illness Date/Time: 08/11/24 07:26 Chief Complaint: Recurrent right inguinal hernia Narrative: Patient complains of a bulge in the right groin region. She had a prior right inguinal hernia repair many years ago. She had a CT scan abdomen pelvis performed looking for the hernia this showed a fat containing recurrent right inguinal hernia. She presents now for recurrent right inguinal hernia via robotic assisted laparoscopic approach with mesh. Review of Systems Review of Systems: The remainder of the review of systems to include constitutional, HEENT, cardiovascular, respiratory, GI, , integumentary, musculoskeletal, endocrine, immunologic, hematologic, psychiatric, and neurologic are all negative except for which is mentioned above in the HPI. [facility] Past Medical History Medical History Abnormal colonoscopy 07/21 polyp Surgical History Surgical History History of hysterectomy History of lumbar fusion 08/27 History of lumbar surgery 2016 History of subtotal thyroidectomy Hx of hernia repair Family History Family History Father Lung cancer Heart disease Mother Cerebrovascular accident Social History Social History Years smoked: 5 Smoking status: Former smoker Tobacco type: cigarettes Second hand tobacco smoke exposure: No Smoking end date: 11/08/79 Alcohol intake: current Drinks per week: 4 Substance use: never Substance use type: does not use Living arrangements: with family Occupation/Education: retired Gender identity (if verbalized by the patient): Female Sexual Orientation (if Verbalized by the Patient): Straight or Heterosexual Spiritual care concerns: No Agree to blood products: Yes Meds Home Medications and Allergies Home Medications Medication Instructions Recorded Confirmed Type atorvastatin 20 mg tablet 20 mg PO DAILY #90 tabs 08/26/23 08/09/24 Rx alendronate 70 mg tablet 70 mg PO WEEKLY #13 tabs 11/16/23 08/09/24 Rx pantoprazole 40 mg tablet,delayed 40 mg PO BID #60 tabs 03/21/24 08/09/24 Rx release levothyroxine 50 mcg tablet 50 mcg PO DAILY #90 tabs 05/19/24 08/09/24 Rx (Euthyrox) tamsulosin 0.4 mg capsule 0.4 mg PO BID #180 caps 05/19/24 08/09/24 Rx ferrous sulfate 325 mg (65 mg 325 mg PO DAILY 05/25/24 08/09/24 History iron) tablet (Iron (ferrous sulfate)) mirabegron 50 mg tablet,extended 50 mg PO DAILY 08/09/24 08/09/24 History release 24 hr (Myrbetriq) Allergies Allergy/AdvReac Type Severity Reaction Status Date / Time Sulfa (Sulfonamide AdvReac Nausea Verified 08/09/24 15:06 Antibiotics) Exam Const: General: comfortable and no acute distress HENMT: Ears: TM's normal bilaterally Face/Nose/Sinus: Normal nares present Mouth: Yes moist mucous membranes Eyes: General: appearance normal, both eyes and all related structures Sclera: sclerae normal Pupils: Equal, round and reactive pupils present EOM: EOMs intact bilaterally Neck: Neck: supple and no JVD Resp: Effort & Inspection: normal respiratory effort Auscultation: clear to auscultation bilaterally Cardio: Rate: regular rate Rhythm: regular rhythm GI: Other: Abdomen is soft and nondistended. Reducible right inguinal hernia on palpation. No tenderness. No left inguinal hernia. Skin: General skin exam: normal color and no rashes or lesions noted Neuro: General: gait normal Speech: normal speech Motor exam (neuro): 5/5 motor strength present throughout Sensory Exam: normal sensation Extrem: General: normal to inspection Psych: Mental Status: mental status grossly normal Affect: normal affect Assessment and Plan Assessment and plan (1) Recurrent right inguinal hernia: Code(s): K4
[2024-08-11] MEDS: ceFAZolin 2 GM/D5W 50 ML 2 GM/50 ML BAG IVPB (07:34)
[2024-08-11] MEDS: LIDO 1%/EPINEPHRINE 1:100,000 20 ML VIAL 25 ML INFILTRATE (08:28)
[2024-08-11] MEDS: BUPivacaine HCL 0.5% 10 ML AMP 25 ML INFILTRATE (08:29)
--- NOTE | 2024-08-11 09:53 | W.PM.PROC2 ---
Procedure Note - Detailed Date of Procedure 08/11/24 Pre-op Diagnosis Recurrent right inguinal hernia Post-op Diagnosis Same Procedure Performed Robotic assisted laparoscopic recurrent right inguinal hernia repair with Bard 3D mid weight mesh. Surgeon Ambrocio Jaeger MD Project Management Analyst BETZAIDA Gonzalez Anesthesia General Indications Patient is a 74-year-old female who presented with complaints of having a bulge in the right groin region. She had a previous open right inguinal hernia repair many years ago as well as a Parks procedure for bladder suspension. On exam and on CT scan she has a reducible fat containing recurrent right inguinal hernia. She presents now for a robotic assisted laparoscopic recurrent right inguinal hernia repair with mesh. Findings Patient had a moderate-sized indirect recurrent right inguinal hernia. There was only fatty tissue within the hernia sac. No bowel was involved. The hernia was repaired with placement of a piece of Bard 3D mid weight mesh measuring [id number] oriented for the right side. Description of Procedure After informed consent was obtained patient brought to the operating room where she was placed supine position and general endotracheal anesthesia was administered. The abdomen and bilateral groin regions were then prepped and draped usual sterile fashion. A time-out was then performed correctly identifying the patient as well as procedure to be performed. Site marking was verified and she was given perioperative IV antibiotics. I then entered the abdomen left upper quadrant utilizing a 5mm Optiview port. Once inside the abdomen insufflated to adequate pneumoperitoneum of 15mmHg of CO2. Looking down the pelvis I could see a moderate-sized recurrent indirect right inguinal hernia. There is no evidence of a left inguinal hernia. There was nothing incarcerated within the hernia on the right. I then placed additional 8mm robotic trocar ports across the mid abdomen. The 5mm right upper quadrant trocar port was then switched out for a 10mm trocar bedside clinical trials assistant port. The Vtrim Blanca robot was then brought to the patient's bedside and docked to the patient's right side. Robotic arms were then docked to the robotic ports and then the robotic instruments advanced into the abdomen under direct visualization. I then scrubbed out the procedure and sat down at the robotic console to perform the dissection. I created a preperitoneal flap starting anterior medial to the right anterior suprailiac spine and extended this across the lower abdomen to the midline. Dissection was carried out in this avascular plane distally with robotic hook cautery identified the inferior epigastric vessels which were medial to the hernia sac. This was a indirect recurrent right inguinal hernia. I then divided the right median umbilical ligament and continued my dissection all the way down to the pubic tubercle. I then cut out the indirect inguinal hernia sac out of the internal ring and then divided the round ligament with electrocautery. The ends were well cauterized to prevent any bleeding. I then everted the hernia sac continue dissection of the edge of the peritoneum proximally up onto the psoas muscle. Medially I dissected some fatty tissue out of the femoral canal and then dissected out a small cord lipoma out of the internal ring. As I dissected down onto the pubic tubercle I then continued my dissection medially and then identified a packing permanent suture from the bladder to Rolf's ligament from her prior Parks procedure. The suture was left intact. The bladder was somewhat adherent to the area the pubic tubercle and pubic symphysis and so I would really did not dissect too far down into the space of Retzius because of the scarring. I then measured the space and chose a piece of Bard 3D mid weight mesh measuring 16cm in width by 10cm in width oriented for the right groin region. Is placed into the abdomen through the bedside assistan
--- NOTE | 2024-08-11 10:45 | SUR.PHASEI ---
1026: Simple mask removed.
--- NOTE | 2024-08-11 11:24 | SUR.PHASEII ---
1100- Pt ambulated to bathroom and voided unmeasured amt of clear yellow urine without difficulty.
== END 2024-08-11 11:41 | disposition home or self-care (01) ==
PROVIDERS: PCP Family Medicine Adolescent Medicine; Visit Provider Surgery
PROC: 8E0Y4CZ Robotic Assisted Procedure of Lower Extremity, Percutaneous Endoscopic Approach (ICD-10-PCS; CPT 49650; principal; 2024-08-11 07:30)
DX: K40.91 Unilateral inguinal hernia, without obstruction or gangrene, recurrent (principal); E89.0 Postprocedural hypothyroidism; Z98.1 Arthrodesis status; Z87.891 Personal history of nicotine dependence
CPT/HCPCS: 49651; S2900; A9270; C1781; J0690; J1100; J1885; J2003; J2004; J2250; J2405; J2704; J3010; J7120

== ENCOUNTER 2025-09-04 15:03 | Outpatient (CLI) | payer MEDICARE, SELFPAY ==
--- NOTE | ~2025-09-04 | MM_ITS ---
EXAMINATION: MM screening [facility] BI w [facility] HISTORY: Screening TECHNIQUE: Craniocaudal and mediolateral oblique 3-D tomosynthesis images were obtained and synthetic 2-D images were generated. CAD analysis was submitted and interpreted. COMPARISON: Comparison to multiple prior studies sequentially, with oldest reviewed study dated 08/29/2018. BREAST PARENCHYMAL COMPOSITION: Not dense: There are scattered areas of fibroglandular density. FINDINGS: There is no evidence of suspicious mass, calcification, or architectural distortion to suggest malignancy in either breast. There has been no suspicious interval change. IMPRESSION: 1. No mammographic evidence of malignancy. 2. Recommend routine screening mammography in one year. BI-RADS Category 1: Negative Reviewed, dictated and finalized at location B.
--- OUTSIDE RECORDS SUMMARY | 2025-09-04 17:22 | XMS_ITS | Clinical Summary ---
Author Organization [facility] Address [address] [place] [address] Care Team Providers Care Food And Beverage Assistant Name Role Phone Renard Salamanca MD Primary Care Prov ider Donnie Patel MD Unavailable [phone] Allergies No known active allergies Medications aspirin-acetami nophen-caffeine (EXCEDRIN EXTRA STRENGTH) 250-250-65 mg per tablet 0 0 7 Active simvastatin (ZOCOR) 20 mg tablet Take 20 mg by mouth daily 0 Active levothyroxine (SYNTHROID) 50 mcg tablet Take 50 mcg by mouth experimental box tester before breakfast Active tamsulosin HCl (TAMSULOSIN ORAL) 9 Active Active Problems Problem Noted Date Diagnosed Date S/P spinal fusion 07/25/2020 Overview (07/25/2020): Added automatically from request for surgery [id number] Spinal stenosis, lumbar region with neurogenic c laudication 07/25/2020 Overview (07/25/2020): Added automatically from request for surgery [id number] Spinal stenosis of lumbar re gion with neurogenic claudication 04/25/2020 Assessment & Plan (02/25/2021 9:50 AM CDT): Assessment Healing fusion L2-4 and healed fusion L5-S1 Plan Observation. I talked her about do's and don'ts and she is to call or come back as needed Assessment & Plan (01/23/2021 11:03 AM CDT): Assessment Healed fusion L5-S1 anteriorly and posterior instrumented spine fusion L2-L4 and expected configuration Plan Observation. She is to return in a month for hopefully final x-ray. Meanwhile she is to attend physical therapy twice a week for her right-sided flank pain Assessment & Plan (11/26/2020 11:09 AM PUBLIC HOUSING INTERVIEWER): Assessment Healing fusion L2-4 status post fusion L5-S1 Plan Observation. I talked her about do's and don'ts and she is to return in 2 months hopefully for final x-ray Assessment & Plan (09/26/2020 11:15 AM PUBLIC HOUSING INTERVIEWER): Assessment: Healing posterior lumbar laminectomy and fusion L2-4, surgery performed August 26, 2020 Status post anterior lumbar fusion L5-S1, surgery performed March 10, 2017 L5-S1 microdiskectomy, surgery performed March 18, 2015 Posterior lumbar fusion L3-4, surgery performed November 29, 2007 Plan: Recommended treatment is follow up in 2 months for re-evaluation and x-ray. Since I saw the patient at this last visit she may follow up with Dr. Patel. She is to continue her postoperative restrictions. Assessment & Plan (07/10/2020 10:33 AM CDT): Assessment Bilateral L2-3 foraminal stenosis Plan Hardware removal L3-4 bilateral facetectomy L2-3 which will render the spine unstable and extension the fusion from L2-L4. I went of procedure with in detail and she understands and accepts as she has gone through similar procedure in the past Assessment & Plan (04/25/2020 11:04 AM CDT): Assessment Healed fusion L3-4 and L5-S1 with severe bilateral foraminal stenosis L2-3 and currently right anterior thigh symptoms when the past of was somewhat left. She had great results previously with her left injection Plan Right L2-3 transforaminal epidural steroid injection Lumbar disc herniation with radiculopathy 2016 Overview (04/02/2017): Lumbar disc disease with radiculopathy Assessment & Plan (01/09/2020 10:24 AM PUBLIC HOUSING INTERVIEWER): Assessment Healed fusion L3-4 and L5-S1 with moderate spinal stenosis foraminally bilaterally at L2-3 with predominantly right leg symptoms Plan Left L2-3 transforaminal epidural steroid injection and follow-up visit Assessment & Plan (12/26/2019 10:18 AM PUBLIC HOUSING INTERVIEWER): Assessment Healed fusion L5-S1 and L3-4 with 1 year of symptoms likely related to the L2-[address] lumbar spine to evaluate the etiology of her new symptoms Surgical History Surgery Date Site/Laterality Comments HYSTERECTOMY BLADDER SURGERY HERNIA REPAIR THYROID SURGERY SPINAL FUSION SPINAL FUSION 08/26/2020 L2-4 PLF - DR PATEL Medical History Medical History Date Comments Hypercholesteremia Thyroid disease Spinal stenosis of lumbar region Hypothyroidism Family History Medical History Relation Name Comments Cancer Father Heart disease Father Hypertension Mother Stroke Mother Relation Name Status Comments Father Mother Social History Tobacco Use Types Packs/Day Years Used Date Smoking Tobacco: Former Cigarettes Q uit: 1986 Smokeless Tobacco: Never Alcohol Use Standard Drinks/Week Comments Yes 0 (1 standard drink = 0.6 oz pur e alcohol) social PHQ-2 Answer Date Recorded PHQ-2 Score 1 12/26/2019 Comments No Sex and Gender Information Value Date Recorded Sex Assigned at Not on file Legal Sex Female 12:48 PM PUBLIC HOUSING INTERVIEWER Gender Identity Not on file Sexual Orientation Not on file Obstetrics History Last Filed Vital Signs Vital Sign Reading Time Taken Comments Blood Pressure 82/48 08/27/2020 3:18 PM CDT Pulse 66 08/27/2020 3:15 PM CDT Temperature 36.5 C (97.7 F) 08/27/2020 7:55 AM CDT Respiratory Rate 20 08/27/2020 7:55 AM CDT Oxygen Saturation 98% 08/27/2020 7:55 AM CDT Inhaled Oxygen Concentration - - Weight 65.3 kg (144 lb) 02/25/2021 9:35 AM CDT Height 167.6 cm (5' 6) 02/25/2021 9:35 AM CDT Body Mass Index 23.24 02/25/2021 9:35 AM CDT Plan of Treatment Not on file Medical Devices Implanted Type Area Antisqueak Filler Device Identifier Shelf Expiration Date Model / Serial / Lot [employer] [id number] Inqu Paste Mix Plus Laundry Helper 10cc Bone Graft Hyaluronic Acid Poly - [id number] Implanted:Qty: 1 on 08/26/2020 by Donnie Patel MD at [facility] Spine Lumbar [employer] 04/19/2022 [id number] / / [id number] Screw Set Streamline Tl Screw System - [id number] Implanted:Qty: 6 on 08/26/2020 by Donnie Patel MD at [facility] Spine Lumbar [employer] -SETSCRE W / / [employer] 65-40 Streamline 6.5mm 40mm Polyaxial Spine Pedicle Screw Bone - [id number] Implanted:Qty: 4 on 08/26/2020 by Donnie Patel MD at [facility] Spine Lumbar [employer] 65-4 0 / / [employer] -45 Streamline 6.5mm 45mm Polyaxial Spine Pedicle Screw Bone - [id number] Implanted:Qty: 2 on 08/26/2020 by Donnie Patel MD at [facility] Spine Lumbar [employer] -4 5 / / [employer] 60 Quantum 5.5mm 60mm Prebent [place] Spinal Titanium - [id number] Implanted:Qty: 1 on 08/26/2020 by Donnie Patel MD at [facility] Spine Lumbar [employer] 0 / / Qsrs Pre-Bent 5.5mm X 65mm - [id number] Implanted:Qty: 1 on 08/26/2020 by Donnie Patel MD at [facility] Spine Lumbar [employer] 5 / / Insurance MEDICARE COMMERCIAL GENERIC Advance Directives For more information, please contact: [phone] Documents on File Type Date Recorded Patient Employment Agency Manager Expl anation ADVANCE DIRECTIVE 10/31/2020 10:55 AM ADVANCE DIRECTIVE 08/26/2020 6:03 AM * Full Code (Latest Code Status on File) Date Activated Date Inactivated Comments 08/26/2020 11:14 AM 08/27/2020 8:53 PM Care Teams Food And Beverage Assistant Relationship Specialty Start Date End Date Renard aSlamanca MD PCP - General 01/28/17 Donnie Patel MD Consulting Physician Orthopedic Surgery 08/27/20
--- OUTSIDE RECORDS SUMMARY | 2025-09-04 17:22 | XMS_ITS | Encounter Summary ---
Author Organization [facility] Address [address] [place] [id number] Care Team Providers Care Wire Harness Assembler Name Role Phone Renard Salamanca MD Primary Care Provider [phone]- [phone] Encounter Details Date Type Department Care Team (Late st Contact Info) Description 08/13/[address] [facility] [place] [id number] Arslan Gusman MD [address] [facility] [place], [place] [id number] Social History Tobacco Use Types Packs/Day Years Used Date Smoking Tobacco: Former Cigarettes Smokeless Tobacco: Never Comments:Y-40 Alcohol Use Standard Drinks/Week Comments Yes 6.7 (1 standard drink = 0.6 oz p ure alcohol) Comments No Sex and Gender Information Value Date Recorded Sex Assigned at Not on file Legal Sex Female 4:02 PM CDT Gender Identity Not on file Sexual Orientation Not on file documented as of this encounter H&P Notes * Arslan Gusman MD - 08/13/2024 1:56 PM CDT Attending Provider: No att. providers found PCP: No primary care provider on file. Cori Khan is an 74-year-old female. Reason for Admission: * No active hospital problems. * HPI: She has mixed incontinence. 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 Previous stress incontinence surgery I suspect a Parks colposuspension Past Medical History: Diagnosis Date Hypothyroidism, unspecified Allergies: Allergies Allergen Reactions Sulfa Antibiotics Nausea Only Social History Tobacco Use Smoking status: Former Types: Cigarettes Smokeless tobacco: Never Tobacco comments: Y-40 Substance Use Topics Alcohol use: Yes Alcohol/week: 6.7 standard drinks of alcohol Types: 4 Glasses of wine per week Past Surgical History: Procedure Laterality Date BACK SURGERY x3 THYROIDECTOMY TOTAL/COMPLETE TOTAL ABDOM HYSTERECTOMY bladder tie up, and hernia repair in late 90s No family history on file. Travel Exposure: Current Outpatient Medications on File Prior to Visit Medication Sig alendronate (FOSAMAX) 35 MG tablet Take 1 tablet (35 mg total) by mouth every 7 days. Ferrous Sulfate (IRON) 325 (65 Fe) MG tablet Take 325 mg by mouth 2 (two) times a day. levothyroxine (SYNTHROID) 50 MCG tablet Take 1 tablet (50 mcg total) by mouth daily. mirabegron ER (MYRBETRIQ) 50 MG 24 hr tablet Take 25 mg by mouth daily. pantoprazole EC (PROTONIX) 40 MG tablet Take 1 tablet (40 mg total) by mouth 2 (two) times a day. simvastatin (ZOCOR) 20 MG tablet Take 1 tablet (20 mg total) by mouth daily. tamsulosin (FLOMAX) 0.4 MG Cap Take 1 capsule (0.4 mg total) by mouth 2 (two) times a day. No current facility-administered medications on file prior to visit. There were no vitals taken for this visit. ROS negative Physical Exam Thin Fixed urethra Assessment: Intrinsic sphincter deficiency Plan: Cystoscopy with injection of trans urethral bulking agent. Understands risks of bleeding, infection, incomplete efficacy, need for repeat procedures, need for catheterization due to urinary retention. Agrees to proceed ARSLAN GUSMAN MD 08/13/2024 documented in this encounter Plan of Treatment Not on file documented as of this encounter Visit Diagnoses Not on filedocumented in this encounter Care Teams Wire Harness Assembler Relationship Specialty Start Date End Date Renard Salamanca MD [address] [address] PCP - General FAMILY PRACTICE 08/17/24 documented as of this encounter
--- OUTSIDE RECORDS SUMMARY | 2025-09-04 17:22 | XMS_ITS | Clinical Summary ---
Author Organization [facility] Address [address] [place] [address] Care Team Providers Care Agricultural Engineering Technologist Name Role Phone Renard Salamanca MD Primary Care Provider [phone]- [phone] Allergies Active Allergy Reactions Criticality Noted Date Comments Sulfa Antibiotics Nausea Only 08/09/2024 Medications levothyroxine (SYNTHROID) 50 MCG tablet Take 1 tablet (50 mcg total) by mouth daily. Active simvastatin (ZOCOR) 20 MG tablet Take 1 tablet (20 mg total) by mouth daily. Active pantoprazole EC (PROTONIX) 40 MG tablet Take 1 tablet (40 mg total) by mouth 2 (two) times a day. Active tamsulosin (FLOMAX) 0.4 MG Cap Take 1 capsule (0.4 mg total) by mouth 2 (two) times a day. Active alendronate (FOSAMAX) 35 MG tablet Take 1 tablet (35 mg total) by mouth every 7 days. Active mirabegron ER (MYRBETRIQ) 50 MG 24 hr tablet Take 25 mg by mouth daily. Active Ferrous Sulfate (IRON) 325 (65 Fe) MG tablet Take 325 mg by mouth 2 (two) times a day. Active HYDROcodone-flor taminophen (NORCO) 5-325 MG tablet Take 1 tablet by mouth every 6 (six) hours as needed for Pain. Active Social History Tobacco Use Types Packs/Day Years Used Date Smoking Tobacco: Former Cigarettes Smokeless Tobacco: Never Tobacco Cessation:Counseling Given: Not Answered Comments:Y-40 Alcohol Use Standard Drinks/Week Comments Yes 6.7 (1 standard drink = 0.6 oz p ure alcohol) Comments No Sex and Gender Information Value Date Recorded Sex Assigned at Not on file Legal Sex Female 4:02 PM CDT Gender Identity Not on file Sexual Orientation Not on file Last Filed Vital Signs Vital Sign Reading Time Taken Comments Blood Pressure 109/64 08/17/2024 11:48 AM CDT Pulse 59 08/17/2024 11:48 AM CDT Temperature 36.4 C (97.6 F) 08/17/2024 11:48 AM CDT Respiratory Rate 16 08/17/2024 11:48 AM CDT Oxygen Saturation 97% 08/17/2024 11:48 AM CDT Inhaled Oxygen Concentration - - Weight 60.1 kg (132 lb 7.9 oz) 08/17/2024 9:10 A M CDT Height 165.1 cm (5' 5) 08/17/2024 9:10 AM CDT Body Mass Index 22.05 08/17/2024 9:10 AM CDT Plan of Treatment Health Maintenance Due Date Last Done Comments Colorectal Cancer Screening Colonoscopy (10 Years) 1952 Hepatitis C 1970 DTaP, Tdap and Td Vaccines (1 - Tdap) 1971 Mammogram Screening 1992 Zoster Vaccines (2 of 3) 02/03/2017 12/09/2016 Annual Medicare Wellness Visit 2017 Dexa Scan (General) 2017 COVID-19 Vaccine ( season) 2025 09/01/2023, 09/07/2022, 05/23/2022, Additional history exists Influenza Adult (#1) 2025 09/01/2023, 09/07/2022, 08/08/2021, Additional history exists RSV Immunization or 60+ Years (1 - 1-dose 75+ series) 2027 Pneumococcal Vaccine: 50+ Years Completed 09/27/2018, 09/11/2017 Hepatitis A Vaccines Aged Out No long er eligible based on patient's age to complete this topic Meningococcal B Vaccine Aged Out No l onger eligible based on patient's age to complete this topic Meningococcal Vaccine Aged Out No quynh malika eligible based on patient's age to complete this topic RSV Immunizations Under 20 Months Aged Out No longer eligible based on patient's age to complete this topic Medical Devices Implanted Type Area Sales And Marketing Assistant Device Identifier Shelf Expiration Date Model / Serial / Lot Bulkamid Urethra Bulking Agent - [id number] Implanted:Qty: 1 on 08/17/2024 by Kole Tolliver MD at [facility] N/A: Urethra [employer] 05/07/2027 [id number] / / [id number] Insurance MEDICARE [facility] FINANCIAL Care Teams Agricultural Engineering Technologist Relationship Specialty Start Date End Date Renard Salamanca MD [address] [address] PCP - General FAMILY PRACTICE 08/17/24
== END 2025-09-04 15:04 | disposition home or self-care (01) ==
LOC: ANHFOHIMG 15:05
PROVIDERS: PCP Family Medicine Adolescent Medicine; Visit Provider Family Medicine Adolescent Medicine
DX: Z12.31 Encounter for screening mammogram for malignant neoplasm of breast (principal)
CPT/HCPCS: 77063; 77067